=== PATIENT | female | born 1970 | race Caucasian/White ===

== ENCOUNTER → 2018-06-16 20:28 | Outpatient (CLI) | payer MEDICAID | END | disposition home or self-care (01) | LOC: D.MAMMO 14:00 | DX: Z12.31 Encounter for screening mammogram for malignant neoplasm of breast (principal) ==

== ENCOUNTER → 2018-09-01 15:38 | Outpatient (CLI) | payer MEDICAID | END | disposition home or self-care (01) | LOC: D.MRI 15:38 | DX: M25.512 Pain in left shoulder (principal) ==

== ENCOUNTER → 2018-10-01 08:01 | Outpatient (CLI) | payer BC, MEDICAID ==
--- NOTE | ~2018-10-01 | ST ---
PATIENT:VIVIANE BRIGHT MEDICAL RECORD: [id number] SEX: F LOCATION:[facility] ORDER #: ADMISSION DATE: 10/01/18 AGE OF PATIENT: 48 REFERRING PHYSICIAN: INTERPRETING PHYSICIAN: CANDI GLOVER MD DATE OF SERVICE: 10/01/2018 PROCEDURE: Nuclear stress test. INDICATION: Chest pain, shortness of breath. DESCRIPTION: She was exercised on standard Estrada protocol for 10 minutes achieving greater than 85% max target heart rate response with 27 mCi of sestamibi injected at peak stress, 8 mCi were used previously for rest images. FINDINGS: Gated SPECT reveals preserved ejection fraction at 61% with good wall motion and thickening and brightening throughout all segments. SPECT imaging Cardiolite was used as myocardial fusion agent. There is homogeneous uptake throughout all segments at rest and stress with no evidence of inducible ischemia or previous infarction. OVERALL IMPRESSION: 1. This is a normal nuclear stress test with no evidence of inducible ischemia or previous infarction. 2. Gated SPECT reveals a preserved ejection fraction at 61%. In this patient with ongoing symptomatology, the current scan does not suggest the presence of hemodynamically significant coronary artery disease. Evaluate noncardiac etiology of chest pain. TRANSINT:[id number] Voice Confirmation ID: [id number] DOCUMENT ID: [id number] CANDI GLOVER MD at 0923 CC: [id number] DICTATION DATE: 10/02/18 1425 SPINNER CONTINUOUS: 10/03/18 0133 DEP CLI 10/01/18 [place] [id number] [place] [id number]
== END | disposition home or self-care (01) ==
LOC: D.HCCARDIO 09-22 10:30
DX: I20.9 Angina pectoris, unspecified (principal)

== ENCOUNTER 2019-12-21 08:00 | Outpatient (CLI) | payer MEDICAID | END 2019-12-21 23:59 | disposition home or self-care (01) | LOC: D.MAMMO 08:00 | PROVIDERS: ATTEND Nurse Practitioner Family | DX: Z01.419 Encounter for gynecological examination (general) (routine) without abnormal findings (principal) ==